=== PATIENT | female | born 1995 | race Caucasian/White ===

== ENCOUNTER 2020-11-25 20:43 | Emergency (ER) | payer OTHER ==
[2020-11-25 20:54] VITALS: BP 131/85; PULSE 86
--- NOTE | 2020-11-25 21:04 | EDM.PDOC ---
ED HPI GENERAL MEDICAL PROBLEM - General Chief Complaint: Laceration Stated Complaint: L HAND LAC Time Seen by Provider: 11/25/20 20:50 Source of Information: Reports: Patient History Limitations: Reports: No Limitations - History of Present Illness INITIAL COMMENTS - FREE TEXT/NARRATIVE: The patient presents with a laceration to her left hand. She was at work and broke a glass. She has a 0.5cm laceration to the left wrist area and a 1cm laceration to the lateral palm on the ulnar side. Her tetanus is up to date. She is right handed. She thinks the glass is out of the wound. Onset: Sudden Duration: Minutes: Location: Reports: Upper Extremity, Left (hand and wrist) Quality: Reports: Sharp Severity: Mild Improves with: Reports: Immobilization Worsens with: Reports: Movement Context: Reports: Trauma (broke a glass at work) Associated Symptoms: Reports: No Other Symptoms Left Hand Pain Score (Numeric/FACES): 4 - Related Data Allergies Allergy/AdvReac Type Severity Reaction Status Date / Time No Known Allergies Allergy Verified 11/25/20 20:49 Home Meds: Home Meds . 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 Musculoskeletal History: Reports: None Neurological History: Reports: None Psychiatric History: Reports: None Endocrine/Metabolic History: Reports: None Hematologic History: Reports: None Immunologic History: Reports: None Oncologic (Cancer) History: Reports: None Dermatologic History: Reports: None - Infectious Disease History Infectious Disease History: Reports: Chicken Pox - Past Surgical History HEENT Surgical History: Reports: None GI Surgical History: Reports: None Social & Family History - Family History Family Medical History: No Pertinent Family History - Tobacco Use Tobacco Use Status *Q: Current Every Day Tobacco User Years of Tobacco use: 2 Packs/Tins Daily: 1 - Caffeine Use Caffeine Use: Reports: Coffee, Soda - Recreational Drug Use Recreational Drug Use: No - Living Situation & Occupation Living situation: Reports: with Family Occupation: Student ED ROS GENERAL - Review of Systems Review Of Systems: See Below Constitutional: Reports: No Symptoms HEENT: Reports: No Symptoms Respiratory: Reports: No Symptoms Cardiovascular: Reports: No Symptoms Endocrine: Reports: No Symptoms GI/Abdominal: Reports: No Symptoms : Reports: No Symptoms Musculoskeletal: Reports: Other (Right hand and wrist lacerations) ED EXAM, SKIN/RASH Exam: See Below Exam Limited By: No Limitations General Appearance: Alert, No Apparent Distress Ears: Normal External Exam Nose: Normal Inspection Head: Atraumatic, Normocephalic Neck: Normal Inspection Respiratory/Chest: No Respiratory Distress Extremities: Other (0.5cm laceration to the left lateral wrist. 1cm laceration to the left lateral palm on the ulnar side. Good sensation and capillary refill distally.) ED SKIN PROCEDURES - Laceration/Wound Repair Left Hand Appearance: Superficial Distal NVT: Neuro & Vascular Intact Exploration/Debridement/Repair: Wound Explored Closed with: Dermabond Lac/Wound length In cm: 1 Tetanus Status Addressed: Yes Complications: No Progress/Comments: There was also a 0.5cm superficial laceration to the left wrist. I washed it with saline. I explored the wound to look for glass and there was none. I did not anaesthatize the wound. I used dermabond to close the wound. She tolerated the procedure well and there were no complications. Course - Vital Signs Last Recorded V/S: Last Vital Signs Temp 97.9 F 11/25/20 20:52 Pulse 86 11/25/20 20:52 Resp 18 11/25/20 20:52 BP 131/85 11/25/20 20:52 Pulse Ox 99 11/25/20 20:52 Departure - Departure Time of Disposition: 21:20 Disposition: Home, Self-Care 01 Condition: Good Clinical Impression: Laceration of left hand Qualifiers: Encounter type: initial encounter Foreign body presence: without foreign body Qualified Code(s): S61.412A - Laceration without foreign body of left hand, initial encounter Laceration of left wrist Qualifiers: Encounter type: initial encounter Qualified Code(s): S61.512A - Laceration without foreign body of left wrist, initial encounter - Discharge Information *PRESCRIPTION DRUG MONITORING PROGRAM REVIEWED*: Not Applicable *COPY OF PRESCRIPTION DRUG MONITORING REPORT IN PATIENT SARTHAK: Not Applicable Referrals: PCP,None [Primary Care Provider] - Forms: ED Department Discharge, ED Return to Work/School Form Additional Instructions: Let the adhesive set up for 2 hours and then you can wash your hands like normal. The adhesive will wear off over the next 7 to 10 days. Do not apply antibiotic ointment on the adhesive that will break the adhesive down. Look for any signs of infection such as redness, swelling, pain, or discharge. If you you see any of these signs, pleaser return or see your doctor. You may need oral antibiotics. Sepsis Event Note (ED) - Evaluation Sepsis Screening Result: No Definite Risk - Focused Exam Vital Signs: Vital Signs Temp Pulse Resp BP Pulse Ox 11/25/20 20:52 97.9 F 86 18 131/85 99
== END 2020-11-25 21:26 | disposition home or self-care (01) ==
LOC: JD.ED 20:43
DX: S61.412A Laceration without foreign body of left hand, initial encounter (principal); S61.512A Laceration without foreign body of left wrist, initial encounter; Z72.0 Tobacco use; W25.XXXA Contact with sharp glass, initial encounter; Y99.0 Civilian activity done for income or pay
CPT/HCPCS: 12001; 99282; 99282-25

== ENCOUNTER 2021-11-24 12:47 | Inpatient (IN) | payer OTHER ==
[2021-11-24] MEDS ORDERED: Ondansetron 4 MG/2 ML SDV IVPUSH PRN (14:21)
[2021-11-24] MEDS ORDERED: Lidocaine 1% 50 ML MDV INJECT SCH (14:21)
[2021-11-24] MEDS ORDERED: Nalbuphine HCl 10 MG/ 1ML Amp IVPUSH PRN (14:21)
[2021-11-24] MEDS ORDERED: Sodium Chloride 0.9% 10 ML Syringe FLUSH PRN (14:21)
[2021-11-24] MEDS ORDERED: Oxytocin/Lactated Ringers 10 UNIT/1,000 ML BAG IV SCH ×2 (14:30)
[2021-11-24] MEDS ORDERED: Ampicillin 2 GM in Sodium Chloride 0.9% 100 ML IV ONE (15:00)
[2021-11-24] MEDS: Lactated Ringers 1,000 ML IV SCH ×2 (15:08→20:06)
[2021-11-24] MEDS ORDERED: diphenhydrAMINE 50 MG/ML SDV IVPUSH PRN (15:37)
[2021-11-24] MEDS ORDERED: Bupivacaine/fentaNYL/NS 100 ML Bag EPIDUR PRN (15:37)
[2021-11-24] MEDS ORDERED: ePHEDrine 50 MG/ML SDV IVPUSH PRN (15:37)
[2021-11-24] MEDS ORDERED: fentaNYL 100 MCG/2 ML SDV EPIDUR PRN (15:37)
[2021-11-24] MEDS: Ampicillin 1 GM in Sodium Chloride 0.9% 100 ML IV SCH ×2 (18:58→22:51)
[2021-11-24] MEDS ORDERED: Sodium Chloride 0.9% 10 ML Syringe FLUSH SCH (21:00)
[2021-11-25] MEDS ORDERED: Bupivacaine 0.25% 10 ML SDV ONE
[2021-11-25] MEDS: Lactated Ringers 1,000 ML IV SCH (01:00)
[2021-11-25] MEDS ORDERED: Misoprostol 200 MCG Tab PO STA (01:54)
[2021-11-25] MEDS ORDERED: Methylergonovine 0.2 MG/1 ML Amp IM STA (01:54)
[2021-11-25] MEDS ORDERED: Docusate Sodium 100 MG Cap PO PRN (02:19)
[2021-11-25] MEDS ORDERED: Witch Hazel Medicated Pads 40/Jar TOP PRN (02:19)
[2021-11-25] MEDS ORDERED: Benzocaine/Menthol 20%-0.5% Spray 78 GM Cannister TOP PRN (02:19)
[2021-11-25] MEDS ORDERED: Ibuprofen 600 MG Tab PO PRN (02:19)
[2021-11-25] MEDS ORDERED: Acetaminophen 325 MG Tab PO PRN (02:19)
[2021-11-26 15:19] VITALS: BP 144/76; PULSE 93
== END 2021-11-26 14:15 | disposition home or self-care (01) | DRG 806 ==
LOC: JD.OBCHECK 12:47 → JD.OB 12:53 → JD.OBCHECK 14:30 → OBSVTOIN 11-25 01:56 → JD.OB 11-25 05:06 → EDSTATUS 11-30 12:28
PROVIDERS: ADMIT Obstetrics & Gynecology; ATTEND Obstetrics & Gynecology
PROC: 10E0XZZ Delivery of Products of Conception, External Approach (ICD-10-PCS; principal; 2021-11-25)
PROC: 0KQM0ZZ Repair Perineum Muscle, Open Approach (ICD-10-PCS; 2021-11-25)
PROC: 10907ZC Drainage of Amniotic Fluid, Therapeutic from Products of Conception, Via Natural or Artificial Opening (ICD-10-PCS; 2021-11-25)
PROC: 3E0R3BZ Introduction of Anesthetic Agent into Spinal Canal, Percutaneous Approach (ICD-10-PCS; 2021-11-25)
DX: O42.92 Full-term premature rupture of membranes, unspecified as to length of time between rupture and onset of labor (principal); O72.0 Third-stage hemorrhage; Z37.0 Single live birth; O99.824 Streptococcus B carrier state complicating childbirth; Z3A.39 39 weeks gestation of pregnancy; O69.81X0 Labor and delivery complicated by cord around neck, without compression, not applicable or unspecified; O70.1 Second degree perineal laceration during delivery; Z87.891 Personal history of nicotine dependence
CPT/HCPCS: 01967; 36415; 51702; 59025; 59409; 84112; 85025; 86592; 86850; 86900; 86901; A9270-GY; J0290; J2210; J2590; J3010; J3490; J7120

== ENCOUNTER 2023-09-02 16:55 | Inpatient (IN) | payer OTHER ==
[2023-09-02] MEDS ORDERED: Nalbuphine HCl 10 MG/ 1ML Amp IVPUSH PRN (17:53)
[2023-09-02] MEDS ORDERED: Lidocaine 1% 50 ML MDV INJECT PRN (17:53)
[2023-09-02] MEDS ORDERED: Ondansetron 4 MG/2 ML SDV IVPUSH PRN (17:53)
[2023-09-02] MEDS ORDERED: Oxytocin/Lactated Ringers 30 UNIT/500 ML BAG IV SCH (18:00)
[2023-09-02 18:11] LABS: BASOPHILS PERCENT AUTO 0.4 % (0.0-1.0); EOSINOPHILS ABSOLUTE AUTO 0.1 K/mm3 (0.0-0.4); EOSINOPHILS PERCENT AUTO 0.6 % (0.0-6.0); HEMATOCRIT 40.7 % (37.0-47.0); IMMATURE GRAN ABSOLUTE AUTO 0.04 K/mm3 (0.00-0.05); IMMATURE GRAN PERCENT AUTO 0.4 % (0.0-0.4); LYMPHOCYTES ABSOLUTE AUTO 1.8 K/mm3 (1.0-4.8); LYMPHOCYTES PERCENT AUTO 19.4 % (24.0-44.0); MEAN CORPUSCULAR HEMOGLOBIN 31.3 pg (28.0-32.0); MEAN CORPUSCULAR HGB CONC 34.4 g/dl (32.0-36.0); MEAN CORPUSCULAR VOLUME 90.8 fl (83.0-99.0); MEAN PLATELET VOLUME 11.1 fl (9.4-12.3); MONOCYTES ABSOLUTE AUTO 0.6 K/mm3 (0.0-0.8); MONOCYTES PERCENT AUTO 6.4 % (0.0-8.0); NEUTROPHILS ABSOLUTE AUTO 6.9 K/mm3 (1.8-7.7); NEUTROPHILS PERCENT AUTO 72.8 % (41.0-71.0); PLATELET COUNT,PLT 246 K/mm3 (150-400); RED BLOOD CELL COUNT 4.48 M/mm3 (4.10-5.30); WHITE BLOOD CELL COUNT,WBC 9.44 K/mm3 (3.9-11.3)
[2023-09-02] MEDS: Lactated Ringers 1,000 ML IV SCH (18:22)
[2023-09-02] MEDS: Oxytocin/Lactated Ringers 30 UNIT/500 ML BAG IV SCH ×2 (18:22→19:30)
[2023-09-02] MEDS: Ampicillin 2 GM in Sodium Chloride 0.9% 100 ML IV ONE (18:23)
[2023-09-02 18:31] LABS: CREATININE 0.8 mg/dL (0.55-1.02); EST CRCL DRUG DOSING (CG) 95.89 mL/min; URIC ACID 5.4 mg/dL (2.6-6.0)
[2023-09-02 19:05] LABS: CREATININE,URINE RAND 18.6 mg/dL (30.0-125.0)
[2023-09-02 19:07] LABS: PROTEIN,URINE RANDOM < 6.0 mg/dL (0.0-11.8)
[2023-09-02] MEDS ORDERED: diphenhydrAMINE 50 MG/ML SDV IVPUSH PRN (20:03)
[2023-09-02] MEDS ORDERED: Phenylephrine 1% 10 MG/ML SDV IVPUSH PRN (20:03)
[2023-09-02] MEDS ORDERED: ePHEDrine 50 MG/ML SDV IVPUSH PRN (20:03)
[2023-09-02] MEDS: fentaNYL 100 MCG/2 ML SDV EPIDUR PRN (22:05)
[2023-09-02] MEDS: Ampicillin 1 GM in Sodium Chloride 0.9% 100 ML IV SCH (22:26)
[2023-09-02] MEDS: Bupivacaine/fentaNYL/NS 100 ML Bag EPIDUR PRN (22:46)
[2023-09-03] MEDS ORDERED: Lidocaine 1% 10 ML MDV ONE
[2023-09-03] MEDS ORDERED: Docusate Sodium 100 MG Cap PO PRN (05:40)
[2023-09-03] MEDS: Benzocaine/Menthol 20%-0.5% Spray 78 GM Cannister TOP PRN (08:05)
[2023-09-03] MEDS: Witch Hazel Medicated Pads 40/Jar TOP PRN (08:05)
[2023-09-03] MEDS: Ibuprofen 600 MG Tab PO PRN (09:57)
[2023-09-03] MEDS: Acetaminophen 325 MG Tab PO PRN (12:26)
[2023-09-04 09:35] VITALS: BP 128/85; PULSE 78
== END 2023-09-04 11:50 | disposition home or self-care (01) | DRG 807 ==
LOC: JD.OBCHECK 16:55 → JD.OB 17:01 → JD.OBCHECK 18:00 → JD.OB 09-03 03:58 → OBSVTOIN 09-03 03:58
PROVIDERS: ADMIT Obstetrics & Gynecology; ATTEND Obstetrics & Gynecology
PROC: 10E0XZZ Delivery of Products of Conception, External Approach (ICD-10-PCS; principal; 2023-09-03)
PROC: 10907ZC Drainage of Amniotic Fluid, Therapeutic from Products of Conception, Via Natural or Artificial Opening (ICD-10-PCS; 2023-09-03)
PROC: 3E033VJ Introduction of Other Hormone into Peripheral Vein, Percutaneous Approach (ICD-10-PCS; 2023-09-03)
PROC: 0UQMXZZ Repair Vulva, External Approach (ICD-10-PCS; 2023-09-03)
PROC: 3E0R3BZ Introduction of Anesthetic Agent into Spinal Canal, Percutaneous Approach (ICD-10-PCS; 2023-09-03)
PROC: 00HU33Z Insertion of Infusion Device into Spinal Canal, Percutaneous Approach (ICD-10-PCS; 2023-09-03)
DX: O13.4 Gestational [pregnancy-induced] hypertension without significant proteinuria, complicating childbirth (principal); Z37.0 Single live birth; O99.824 Streptococcus B carrier state complicating childbirth; O71.82 Other specified trauma to perineum and vulva; O69.81X0 Labor and delivery complicated by cord around neck, without compression, not applicable or unspecified; Z3A.37 37 weeks gestation of pregnancy; Z87.891 Personal history of nicotine dependence
CPT/HCPCS: 36415; 51702; 59025; 59409; 82565; 82570; 83615; 84112; 84156; 84450; 84460; 84520; 84550; 85025; 86592; 86850; 86900; 86901; A9270-GY; J0290; J3010; J3490; J7120; J7999